=== PATIENT | female | born 1985 | race Caucasian/White ===

== ENCOUNTER 2020-02-01 12:58 | Emergency (ER) | payer SELFPAY ==
[2020-02-01] MEDS ORDERED: CHLORHEXIDINE GLUCONATE 4 % 15 ML UD TOP ONE (13:18)
[2020-02-01] MEDS ORDERED: TETANUS,DIPHTHERIA,PERTUSSIS 1 EA SYG IM ONE (13:19)
--- NOTE | 2020-02-01 13:19 | ED.PDOC ---
History of Present Illness - General Time Seen by Provider: 02/01/20 13:19 - History of Present Illness Initial Comments: 34 yo RHD female was cutting open a bag of candy with a knife when she sliced her hand. no numbness or tingling. unknown last tetanus Allergies/Adverse Reactions: Allergies Penicillins Allergy (Verified 02/01/20 14:05) Home Medications: Ambulatory Orders Ibuprofen [Ibu] 600 mg PO QID PRN #30 tab 02/01/20 Review of Systems - Review of Systems Constitutional: Denies: fever, malaise, weakness EENTM: Denies: blurred vision, tearing Respiratory: Denies: cough, orthopnea, short of breath Cardiology: Denies: chest pain, edema, palpitations Gastrointestinal/Abdominal: Denies: abdominal pain, constipation, diarrhea, nausea Genitourinary: Denies: discharge, dysuria, frequency, hematuria Musculoskeletal: Denies: back pain, joint pain, joint swelling, neck pain Neurological: Denies: anxiety, depressed, headache, numbness, paresthesia, tingling, tremors, weakness Endocrine: Denies: excessive sweating, increased urine, unexplained weight gain, unexplained weight loss Hematologic/Lymphatic: Denies: anemia, blood clots, easy bleeding Physical Exam - Physical Exam General Appearance: Alert, Comfortable, No apparent distress Ears, Nose, Throat: hearing grossly normal, normal ENT inspection Neck: non-tender, full range of motion Respiratory: chest non-tender, lungs clear, normal breath sounds, no respiratory distress, no accessory muscle use Cardiovascular/Chest: normal peripheral pulses, regular rate, rhythm, no edema, no gallop, no JVD, no murmur Peripheral Pulses: radial,right: 2+, radial,left: 2+, dorsalis pedis,right: 2+, dorsalis pedis,left: 2+ Gastrointestinal/Abdominal: normal bowel sounds, non tender, soft, no organomegaly, no pulsatile mass Rectal Exam: deferred Back Exam: normal inspection, no CVA tenderness, no vertebral tenderness Extremity: normal range of motion, normal capillary refill, other - 2 cm laceration on thenar eminence, full ROM, no evidence of tendon or vessel injury Neurologic: sheet sorter II-XII nml as tested, no motor/sensory deficits, alert, normal mood/affect, oriented x 3 Skin Exam: normal color, warm/dry, other - laceration as described Lymphatic: no adenopathy Comments: Symmetrically palpable radial and ulnar pulses. Capillary refill <2 seconds to all digits. Intact sensation to light touch of the radial, median and ulnar nerves demonstrated by testing in the dorsal web space of the thumb, the distal palmar aspect of the index finger, and the lateral surface of the fifth finger. 2 point discrimination intact to 5mm (up to 6mm can be normal in digits 3-5) of discrimination in the affected digit. Intact motor function of the radial, median and ulnar nerves demonstrated by strength of extension of the isolated distal joint of the index finger, hand felt hat steamer, and spreading of the 2nd through 5th digits. Intact recurrent median nerve as demonstrated by ability to move thumb fully through opposition, abduction and flexion. No snuffbox tenderness. 2.5 cm laceration on plamer surface over thenar eminence Progress - Progress Progress: 02/01/20 14:57 tdap given, patient refused sutures. wound glued, return precautions given including but not limited too numbness, weakness, sign of infection, worsening pain. Patient instructed to follow up with pcp in 2-3 days. 801 Departure - Departure Clinical Impression: Laceration, Accidental laceration Disposition: Discharge to Home or Self Care Condition: Good Instructions: Laceration Repair With Glue (DC), Wound Care (DC) Referrals: CHELY SOL [Primary Care Provider] - 1-2 Days Prescriptions: Ibuprofen [Ibu] 600 mg PO QID PRN #30 tab PRN Reason: Pain Home Medications: Ambulatory Orders Ibuprofen [Ibu] 600 mg PO QID PRN #30 tab 02/01/20
[2020-02-01 18:11] VITALS: BP 103/75; TEMP 98; O2SAT 96
== END 2020-02-01 14:16 | disposition home or self-care (01) ==
LOC: ER 12:58
DX: S61.412A Laceration without foreign body of left hand, initial encounter (principal); W26.0XXA Contact with knife, initial encounter; Y93.89 Activity, other specified; Z88.0 Allergy status to penicillin